=== PATIENT | male | born 1985 | race Caucasian/White ===

== ENCOUNTER 2024-02-28 12:02 | Emergency (ER) | payer OTHER ==
[~2024-02-28] VITALS: Ht 180.3 cm; Wt 80.9 kg
[2024-02-28 12:14] VITALS: TEMP 98.2
[2024-02-28] MEDS: IBUPROFEN 600 MG TABLET PO ONE (14:06)
[2024-02-28 14:14] VITALS: BP 132/80; PULSE 78; RESP 18; O2SAT 98
[2024-02-28] MEDS ORDERED: IBUP-1492 PO (14:19)
[2024-02-28] MEDS ORDERED: METH-659 PO (14:19)
[2024-02-28] MEDS: LIDOCAINE 5% TRANSDERMAL PATCH TD ONE (14:38)
== END 2024-02-28 15:22 | disposition home or self-care (01) ==
LOC: EMS 12:02
DX: S39.012A Strain of muscle, fascia and tendon of lower back, initial encounter (principal); S70.11XA Contusion of right thigh, initial encounter; Y03.0XXA Assault by being hit or run over by motor vehicle, initial encounter; Y93.89 Activity, other specified; Y92.89 Other specified places as the place of occurrence of the external cause; Y99.0 Civilian activity done for income or pay
CPT/HCPCS: 99283

== ENCOUNTER 2024-03-04 08:39 | Emergency (ER) | payer OTHER ==
[~2024-03-04] VITALS: Ht 180.3 cm; Wt 81.0 kg
[~2024-03-04 08:39] MED LIST: IBUP-1492 PO; METH-659 PO
[2024-03-04 08:43] VITALS: BP 113/73; PULSE 68; RESP 18; TEMP 98.1; O2SAT 99
== END 2024-03-04 10:25 | disposition home or self-care (01) ==
LOC: EMS 08:40
DX: S70.01XA Contusion of right hip, initial encounter (principal); W22.8XXA Striking against or struck by other objects, initial encounter; Y93.89 Activity, other specified; Y92.89 Other specified places as the place of occurrence of the external cause; Y99.8 Other external cause status
CPT/HCPCS: 99281; Z7502